=== PATIENT | female | born 1960 | race Caucasian/White ===

== ENCOUNTER → 2021-06-05 08:27 | Outpatient (CLI) | payer OTHER, SELFPAY ==
--- NOTE | 2021-06-05 08:31 | DI.RAD.S_ITS ---
PROCEDURE: XR THORACIC SPINE 2V INDICATIONS: L lower lumbar back pain x 3 months TECHNIQUE: 3 views of the thoracic spine were acquired. COMPARISON: [facility], CR, XR LUMBAR SPINE 2-3V, 06/05/2021, 8:27. FINDINGS: Bones: No fractures or dislocations. No suspicious bony lesions. 12 pairs of ribs are noted, and appear intact where visualized. Multilevel degenerative disc space narrowing is present. Multilevel bridging anterior osteophytes are present throughout the thoracic spine. Soft tissues: No paravertebral stripe thickening. IMPRESSION: Multilevel degenerative changes as above. Dictated by: Ivory Dozier M.D. on 06/05/2021 at 8:58 Approved by: Ivory Dozier M.D. on 06/05/2021 at 9:00
--- NOTE | 2021-06-05 08:31 | DI.RAD.S_ITS ---
PROCEDURE: XR LUMBAR SPINE 2-3V INDICATIONS: Upper/mid thorasic back pain x 3 months TECHNIQUE: 3 views of the lumbar spine were acquired. COMPARISON: [facility], , XR THORACIC SPINE 2V, 06/05/2021, 8:27. FINDINGS: Bones: 5 [id number] vertebrae are present. There is normal bony alignment. No vertebral body compression fractures. No suspicious bony lesions. Multilevel degenerative disc space narrowing is present within the visualized lumbar spine most notable at L2-3, L5-S1. Foraminal narrowing is present most prominently at L4-5 and L5-S1. Multilevel anterior osteophytes are present. Soft tissues: Overlying bowel gas pattern is normal. No suspicious soft tissue calcifications. IMPRESSION: Degenerative changes most notable at L5-S1. Dictated by: Ivory Dozier M.D. on 06/05/2021 at 8:57 Approved by: Ivory Dozier M.D. on 06/05/2021 at 8:58
== END ==
PROVIDERS: PCP Family Medicine; Referring Provider Nurse Practitioner; Visit Provider Nurse Practitioner
DX: M54.6 Pain in thoracic spine (principal); M54.5 Low back pain; M47.817 Spondylosis without myelopathy or radiculopathy, lumbosacral region; M47.814 Spondylosis without myelopathy or radiculopathy, thoracic region
CPT/HCPCS: 72070; 72100

== ENCOUNTER → 2021-06-27 13:14 | Outpatient (CLI) | payer OTHER, SELFPAY ==
--- NOTE | 2021-06-27 | PATH_ITS ---
Note [facility] Accession Number: [id number] TESTS RESULT FLAG UNITS REF RANGE LAB Clinician Provided Cytology Information No. of containers..01 Other (Miscellaneous) Source: 01 LEFT NECK MASS Clinician ICD10: R22.2 DIAGNOSIS: 01 LEFT NECK MASS NEGATIVE FOR MALIGNANT CELLS. [place] CATEGORY II. SPECIMEN CONSISTS OF BENIGN FOLLICULAR CELLS, FORMING MACROFOLLICLES WITH FOCAL HURTHLE CELL CHANGE. THIS PATTERN IS CONSISTENT WITH A BENIGN FOLLICULAR NODULE. COMMENT: Review of the patient's chart notes (US guided FNA procedure dated 06/27/2021), reveals that the FNA is reported as originating from thyroid in the left supraclavicular region. The specimen is limited to only a single ThinPrep and cell block, the latter of which is nearly accelular. The ThinPrep exhibits features as indicated in the diagnosis. No smears are submitted for evaluation. This case is also reviewed by Dr. Erica Kat who concurs with the given interpretation. Pathologist ICD10: E04.1 Signed out by: Ruma Morocho MD, Pathologist NPI- [id number] Performed by: Gallo Staples, Ram Car Operator ([facility]) Gross description: 01 45 CC, PINK, CLEAR RECIEVED: IN CYTOLYT WITH BLUE CAP CONTAINER. /[facility] 06/29/2021 0714 Local FLAG LEGEND: L-Low Normal,H-High Normal,LL-Alert Low,HH-Alert High <-Panic Low,>-Panic High,A-Abnormal,AA-Critical Abnormal Performed at: 01 =[facility] [address], [place] [address] Huy Ya MD, Performed at: 01 [facility] [address], [place], [place] [id number] MD Huy Ya MD Phone: [phone]
--- NOTE | 2021-06-27 | DI.US.S_ITS ---
PROCEDURE: US FINE NEEDLE ASPIRATION INDICATIONS: LEFT SUPRACLAVICULAR REGION; DORSALGIA TECHNIQUE: The indications, alternatives, benefits, risks, and complications of the procedure were explained to the patient. Written informed consent was obtained and placed in the chart. The thyroid region was examined sonographically and a site was chosen for ultrasound guided percutaneous sampling. The skin was prepared and draped in the usual fashion, and anesthetized with 1% lidocaine infiltrated from the skin down to the thyroid gland. Multiple passes were then performed, with contents emptied into an appropriate pathology specimen container. A bandage was applied to the area of access at completion of the study. COMPARISON: None. FINDINGS: Location(s) of lesion(s) sampled: Soft tissue mass at the left supraclavicular region/base of neck Gause: 22 and 25 gauge hypodermic needles. Number of passes: 9 Medications: 1% lidocaine for local anaesthesia. Complications: None. IMPRESSION: Successful ultrasound-guided thyroid nodule fine needle aspiration, with cytology results pending. Please see chart below for management recommendations based on cytology results. [facility] ReportingRecommendationsNon-diagnostic* Repeat US-guided FNA, with on-site cytology evaluation if possible. * Repeated non-diagnostic nodules without high suspicion US features: close observation vs surgical consult. * Consider surgery if nodule has high suspicion US features, grows >20% in 2 dimensions on followup, or patient has clinical risk factors for malignancy. Benign* If nodule has high suspicion US features: repeat US and FNA within 12 months. * If nodule has low to intermediate suspicion US features: repeat US at 12-24 months. If nodule grows (20% increase in at least 2 dimensions, with minimal increase of 2 mm or >50% change in volume), or development of new suspicious US features, then repeat FNA or continue followup. * If nodule has very low suspicion US features: followup US at >24 months. Atypia of undetermined significance, follicular lesion of undetermined significanceRepeat FNA, molecular testing, followup US, or surgical consult.Follicular neoplasm, suspicious for follicular neoplasmSurgical consult; also consider molecular testing. Suspicious for malignancySurgical consult.MalignantSurgical consult. Dictated by: Rahul London M.D. on 06/28/2021 at 14:12 Approved by: Rahul London M.D. on 06/28/2021 at 14:13
== END ==
PROVIDERS: PCP Family Medicine; Referring Provider Family Medicine; Visit Provider Family Medicine
DX: R22.2 Localized swelling, mass and lump, trunk (principal); M54.9 Dorsalgia, unspecified
CPT/HCPCS: 10005